=== PATIENT | female | born 1995 | race Caucasian/White ===

== ENCOUNTER 2016-12-21 11:31 | Emergency (ER) | payer OTHER ==
[~2016-12-21] VITALS: Ht 160 cm; Wt 72.5 kg
[~2016-12-21 11:31] MED LIST: IBUP-1542 PO; ONDA4TAB35 PO
[2016-12-21 11:34] VITALS: Ht 160 cm; Wt 72.5 kg
[2016-12-21] MEDS ORDERED: ONDANSETRON (ODT) 4 MG TAB ODT STA (11:44)
[2016-12-21] MEDS ORDERED: IBUP-1542 PO (11:51)
[2016-12-21] MEDS ORDERED: LIDO20SO19 MM (11:51)
[2016-12-21] MEDS ORDERED: ACETAMINOPHEN 325 MG TAB PO ONE (12:00)
--- NOTE | 2016-12-21 12:04 | ERD ---
ER Documentation Chief Complaint Date/Time DATE: 12/21/16 TIME: 11:59 Chief Complaint SORE THROAT , FEVER X 1 DAY HPI 21-year-old female presents with a history of sore throat fever 1 day. She reports associated nausea and vomiting with this. She has no difficulty handling secretions or speaking. She denies any history of cough, runny nose, rashes. ROS All systems reviewed and are negative except as per history of present illness. Medications Home Meds Active Scripts Ibuprofen* (Motrin*) 600 Mg Tab, 600 MG PO Q6, #30 TAB Prov:JONATHON PLUMMER PA-C 12/21/16 Lidocaine (Lidocaine Viscous) 100 Ml Soln, 10 ML MM BID, #100 ML Prov:JONATHON PLUMMER PA-C 12/21/16 Ondansetron Hcl* (Zofran* ODT) 4 mg -ODT Tab.disper, 4 MG PO Q6 Y for NAUSEA AND /OR VOMITING, #10 TAB Prov:JONATHON PLUMMER PA-C 05/31/15 Ibuprofen* (Motrin*) 600 Mg Tab, 600 MG PO Q6, #20 TAB Prov:JONATHON PLUMMER PA-C 05/31/15 Allergies Allergies: Coded Allergies: No Known Allergy (Unverified , 05/31/15) PMhx/Soc Hx Alcohol Use: No Hx Substance Use: No Hx Tobacco Use: No Physical Exam Vitals Vital Signs Date Time Temp Pulse Resp B/P Pulse Ox O2 Delivery O2 Flow Rate FiO2 12/21/16 11:34 100.7 105 18 123/57 98 Physical Exam General: Well-developed, well-nourished. The patient appears in no acute distress. HEENT: Head is normocephalic, atraumatic. No scleral icterus. Oropharynx has ulcerative lesions with an erythematous base, tonsils are erythematous without exudate, uvula midline. Neck: Supple. Nontender. Lungs: Clear to auscultation. Normal air movement. Heart: Regular rate and rhythm. S1 and S2 are normal. No murmurs, gallops, or rubs. Abdomen: Nondistended. Extremities: No clubbing or cyanosis. Moving extremities x 4. No weakness. Neurologic: Alert and oriented 3. No focal deficits. Normal speech and gait. Skin: Normal turgor. No rash or lesions. Results 24 hrs Current Medications Medications (Trade) Dose Ordered Sig/Della Route PRN Reason Start Time Stop Time Status Last Admin Dose Admin Acetaminophen (Tylenol Tab) 650 mg ONCE ONCE PO 12/21/16 12:00 12/21/16 12:01 12/21/16 11:54 Ondansetron HCl (Zofran Odt) 4 mg ONCE STAT ODT 12/21/16 11:44 12/21/16 11:45 DC 12/21/16 11:54 Procedures/MDM The patient is a 21 yo female who comes in with acute pharyngitis, patient's physical examination is consistent with a viral pharyngitis. There is no exudate, uvula is midline. She has a fever with nausea vomiting that is likely all part of the viral syndrome. There are ulcerative lesions, she is discussed with the patient on no antibiotics are warranted for treatment. The patient has a differential diagnosis of a viral upper respiratory infection, bacterial upper respiratory infection, bronchitis, pneumonia, pharyngitis, laryngitis, epiglottitis, croup, pneumonia. Patient has a normal pulmonary examination, clear breath sounds, normal pulse oximetry, with no corrective measures needed at this time. Fluids, rest, antipyretics were encouraged. Departure Diagnosis: Primary Impression: Acute pharyngitis Condition: Good Patient Instructions: Pharyngitis, Viral Additional Instructions: Call your primary care doctor TOMORROW for an appointment during the next 1-2 days.See the doctor sooner or return here if your condition worsens before your appointment time. JONATHON PLUMMER PA-C Dec 21, 2016 12:04
== END 2016-12-21 12:24 | disposition home or self-care (01) ==
LOC: FTE 11:31
DX: J02.9 Acute pharyngitis, unspecified (principal); R11.2 Nausea with vomiting, unspecified
CPT/HCPCS: Z7502; Z7610; 99283

== ENCOUNTER 2016-12-23 09:56 | Emergency (ER) | payer OTHER ==
[~2016-12-23] VITALS: Ht 157.5 cm; Wt 71.0 kg
[~2016-12-23 09:56] MED LIST changes: +LIDO20SO19 MM
[2016-12-23 10:01] VITALS: Ht 157.5 cm; Wt 71.0 kg
[2016-12-23] MEDS ORDERED: AZIT250T94 PO (10:30)
[2016-12-23] MEDS ORDERED: MED4DP PO (10:31)
[2016-12-23] MEDS ORDERED: NAPR-260 PO (10:32)
--- NOTE | 2016-12-23 15:19 | ERD ---
ER Documentation Chief Complaint Date/Time DATE: 12/23/16 TIME: 15:17 Chief Complaint SORE THROAT X 3 DAYS HPI This patient is a 21-year-old female presenting to the emergency department with complaints of sore throat for the past 4 days. Symptoms are worsening. The patient was seen here 2 days ago and diagnosed with viral pharyngitis. Since then the symptoms have worsened. Symptoms are currently moderate in severity. The patient denies cough, fevers, or other symptoms. ROS All systems reviewed and are negative except as per history of present illness. Medications Home Meds Active Scripts Naproxen* (Naprosyn*) 500 Mg Tablet, 500 MG PO BID Y for PAIN AND/OR INFLAMMATION, #30 TAB Prov:GOLDEN BENAVIDES PA-C 12/23/16 Methylprednisolone* (Medrol* DOSE PACK) 4 Mg/Dose-Pack Tab.ds.pk, 4 MG PO . DIRECTED, #1 PACKET Prov:GOLDEN BENAVIDES PA-C 12/23/16 Azithromycin* (Zithromax*) 250 Mg Tablet, 250 MG PO .ZPACK DIRECTED, #6 TAB TAKE 500 MG (2 TABS) THE FIRST DAY THEN 250 MG (1 TAB) DAYS 2-5 Prov:GOLDEN BENAVIDES PA-C 12/23/16 Ibuprofen* (Motrin*) 600 Mg Tab, 600 MG PO Q6, #30 TAB Prov:JONATHON PLUMMER PA-C 12/21/16 Lidocaine (Lidocaine Viscous) 100 Ml Soln, 10 ML MM BID, #100 ML Prov:JONATHON PLUMMER PA-C 12/21/16 Ondansetron Hcl* (Zofran* ODT) 4 mg -ODT Tab.disper, 4 MG PO Q6 Y for NAUSEA AND /OR VOMITING, #10 TAB Prov:JONATHON PLUMMER PA-C 05/31/15 Ibuprofen* (Motrin*) 600 Mg Tab, 600 MG PO Q6, #20 TAB Prov:JONATHON PLUMMER PA-C 05/31/15 Allergies Allergies: Coded Allergies: No Known Allergy (Unverified , 12/23/16) PMhx/Soc Medical and Surgical Hx: pt denies Medical Hx, pt denies Surgical Hx Hx Alcohol Use: No Hx Substance Use: No Hx Tobacco Use: No Smoking Status: Never smoker Physical Exam Vitals Vital Signs Date Time Temp Pulse Resp B/P Pulse Ox O2 Delivery O2 Flow Rate FiO2 12/23/16 10:01 99.6 104 18 117/66 98 Physical Exam Const: Nontoxic, well-appearing female in no acute distress. Head: Atraumatic Eyes: Normal Conjunctiva ENT: Normal External Ears, Nose and Mouth. There is bilateral tonsillar hypertrophy with erythema and scant exudate present on the right tonsil. The airway is clear. There is no uvular deviation. Neck: Full range of motion..~ No meningismus. Resp: Clear to auscultation bilaterally Cardio: Regular rate and rhythm, no murmurs Abd: Soft, non tender, non distended. Normal bowel sounds Skin: No petechiae or rashes Back: No midline or flank tenderness Ext: No cyanosis, or edema Neur: Awake and alert Psych: Normal Mood and Affect Procedures/MDM 21-year-old female presenting to the emergency department with complaints of sore throat. History and clinical examination is consistent with pharyngitis, presumed strep. The patient is stable for outpatient management with a prescription for azithromycin and Medrol Dosepak. She will also be given a prescription for naproxen to be taken as needed for pain. The patient agrees with the discharge plan of diagnosis. All questions and concerns were addressed. Strict ER return precautions were discussed. Close follow-up with the primary care physician advised. Departure Diagnosis: Primary Impression: Pharyngitis Condition: Fair Patient Instructions: Pharyngitis, Strep (Presumed) Referrals: [facility]IC [facility] CLINICS YOU HAVE RECEIVED A MEDICAL SCREENING EXAM AND THE RESULTS INDICATE THAT YOU DO NOT HAVE A CONDITION THAT REQUIRES URGENT TREATMENT IN THE EMERGENCY DEPARTMENT. FURTHER EVALUATION AND TREATMENT OF YOUR CONDITION CAN WAIT UNTIL YOU ARE SEEN IN YOUR DOCTORS OFFICE WITHIN THE NEXT 1-2 DAYS. IT IS YOUR RESPONSIBILITY TO MAKE AN APPOINTMENT FOR FOLOW-UP CARE. IF YOU HAVE A PRIMARY DOCTOR --you should call your primary doctor and schedule an appointment IF YOU DO NOT HAVE A PRIMARY DOCTOR YOU CAN CALL OUR PHYSICIAN REFERRAL HOTLINE AT IF YOU CAN NOT AFFORD TO SEE A PHYSICIAN YOU CAN CHOSE FROM THE FOLLOWING [facility]OSP[facility] CLINICS [facility] [id number] [facility]. [facility] [address] [facility]. [email or web address] [address] [facility]. [facility] [address] [facility]. [facility] [address] [facility] [address] Additional Instructions: Follow up with your PCP within the next 1-3 days for a repeat evaluation. If you require a referral to a specialist, your Primary Care Provider may be able to provide this for you. In most patient cases, a referral is not required. If you have further questions regarding this matter, please ask your Primary Care Provider. Return the the emergency department immediately if symptoms worsen or change. If you have any questions regarding medications, ask your pharmacist or us before you leave. If any adverse reactions, occur while taking your medications, discontinue the treatment and return to the emergency department immediately. If any new or worsening symptoms, uncontrolled fevers, or other unexplained symptoms occur, return to the emergency department immediately. Take your medications as directed, and complete the entire course of treatment. GOLDEN BENAVIDES PA-C Dec 23, 2016 15:19
== END 2016-12-23 10:52 | disposition home or self-care (01) ==
LOC: FTE 09:56
DX: J02.9 Acute pharyngitis, unspecified (principal)
CPT/HCPCS: 99284

== ENCOUNTER 2017-11-03 15:30 | Emergency (ER) | END 2017-11-03 17:27 | disposition home or self-care (01) ==